=== PATIENT | male | born 1955 | race Caucasian/White ===

== ENCOUNTER → 2017-04-15 | Outpatient (CLI) | payer BC ==
[~2017-04-15] MED LIST: BUPR-127 PO; CIT20 PO; FINA5TAB67 PO; GLUC500T13 PO; METO25TA93 PO; MULT-1 PO; TAMS0.4C70 PO; TEST1.25 TOP
--- NOTE | 2017-04-16 21:45 | RADIOLOGY IMAGING REPORT ---
FACILITY: [facility] [place] PATIENT NAME: NISHANT ZALDIVAR : [id number] MR: [id number] V: [id number] EXAM DATE: ORDERING PHYSICIAN: KOKI STORY TECHNOLOGIST: Sea Duong EXAMINATION:TWO-DIMENSIONAL ECHOCARDIOGRAPH REASON:PVC'S/HTN 2D Measurements (normal values in centimeters) LV endLV endRV endVent.LV PostAorticLeftPercent DiastolicSystolicDiastolicSeptumWallRootAtriumShortening (3.5-5.7)(0.9-2.6)(0.6-1.1)(0.6-1.1)(2.0-3.7)(1.9-4.0)(25-35%) [id number]% STROKE VOLUME: 54ml ESTIMATED EJECTION FRACTION:53% PARASTERNAL LONG AXIS: Overall left ventricular systolic function appears to be normal. Right ventricle appears to be the upper range of normal in size. No left ventricular thickening is noted. Patient has an occasional premature ventricular contraction. The aortic valve & mitral valve both appear to open normally. The left atrium appears to be moderately enlarged. Color examination of the valves reveals some aortic insufficiency as well as some mitral insufficiency present. PARASTERNAL SHORT AXIS: Overall left ventricular systolic function appears to be the lower range of normal. No specific wall motion abnormalities are noted. Aortic valve is trileaflet in configuration & appears to open normally. The pulmonic valve also appears to open normally. There is a mild amount of pulmonic insufficiency. There is some aortic insufficiency & some tricuspid insufficiency. APICAL FOUR AND TWO CHAMBER: Normal left ventricular ejection fraction at the lower range of normal. Left atrium is enlarged. Left atrial volume measures 36ml/m2 which is moderately enlarged. Aortic valve area & mitral valve area both measure within normal ranges at 3.0 & 4.7cm2 respectively. There is a trace to mild amount of tricuspid insufficiency with estimated right ventricular systolic pressures of 18mm Hg. SUBCOSTAL VIEW: No pericardial effusion was noted. No atrioseptal or ventriculoseptal defects were appreciated. Doppler examination of the mitral valve in diastole reveals the A wave > E wave. Aortic insufficiency pressure half time is measured at 685msec going down to 397msec. IVC is normal in size. OVERALL IMPRESSION: 1. Left ventricular ejection fraction of 53%. No wall motion abnormalities were noted. There is some mild hypokinesis. 2. Borderline right ventricular enlargement. Right atrium appears to be normal in size. There is a moderate amount of left atrial enlargement. The left ventricle is normal in size. 3. No hypertrophy was noted. 4. A trileaflet aortic valve with no aortic stenosis but a mild to moderate amount of aortic insufficiency. 5. Mild amount of mitral insufficiency with no mitral stenosis. 6. A trace to mild amount of tricuspid insufficiency with estimated right ventricular systolic pressures within normal ranges at 18mm Hg. 7. A mild amount of pulmonic insufficiency. 8. A Grade 1/4 decrease in diastolic function. Dictated by: Feliberto Rogers M.D. on 04/15/2017 at 16:22 Transcribed by: ALEXANDER on 04/16/2017 at 11:00 Approved by: Feliberto Rogers M.D. on 04/16/2017 at 21:44 [facility]
== END ==
LOC: US 02:20
PROVIDERS: ATTEND Internal Medicine Cardiovascular Disease
DX: R29.898 Other symptoms and signs involving the musculoskeletal system (principal); I51.7 Cardiomegaly; I35.1 Nonrheumatic aortic (valve) insufficiency; I37.1 Nonrheumatic pulmonary valve insufficiency; I34.0 Nonrheumatic mitral (valve) insufficiency; I50.30 Unspecified diastolic (congestive) heart failure
CPT/HCPCS: 93306

== ENCOUNTER → 2017-04-21 | Outpatient (REF) | payer BC | LOC: ZZSENDIN 17:07 | PROVIDERS: ATTEND Family Medicine | DX: Z01.812 Encounter for preprocedural laboratory examination (principal) | CPT/HCPCS: 81001 ==

== ENCOUNTER 2017-05-11 02:43 | Inpatient (IN) | payer BC ==
[2017-05-10 15:55] LABS: INR 1.05
[~2017-05-11] VITALS: Ht 175.3 cm; Wt 83.9 kg
[2017-05-11] VITALS (15 sets, daily range): BP systolic 120–163; BP diastolic 80–114
[~2017-05-11 02:43] MED LIST changes: +AMA100 PO; +AMLO-96 PO; +ASPI81TA94 PO; +CARB-94 PO; +MIRA25TA PO; +ROPI3TAB16 PO; +SOLI10TA8 PO
[2017-05-11] MEDS ORDERED: TRANEXAMIC AC 1000 MG/10ML SDV 1,000 MG in DEXTROSE 5% 50 ML BAG 50 ML IV ONE (08:55)
[2017-05-11] MEDS ORDERED: cloNIDine EPIDUR INJ 100MCG/ML 40 MCG, ROPIVACAINE 0.5% 20 ML VIAL 25 ML, EPINEPHrine H... INJ ONE (08:55)
[2017-05-11] MEDS ORDERED: ceFAZolin(*) 2GM/D5W 50ML 50 ML IVPB ONE (08:55)
[2017-05-11] MEDS ORDERED: MIDAZOLAM 2 MG/2 ML VIAL IVP PRN (08:55)
[2017-05-11] MEDS ORDERED: LIDOCAINE/SOD BICARB 8.4% SYR ID ONE (08:55)
[2017-05-11] MEDS ORDERED: NORMOSOL R SOLN(*) 1000 ML BAG 1,000 ML IV PRN ×2 (08:55→12:20)
[2017-05-11] MEDS ORDERED: FAMOTIDINE 20 MG TAB PO ONE (08:55)
[2017-05-11] MEDS ORDERED: DEXAMETHASONE SOD 4 MG/ML VIAL ONE (09:24)
[2017-05-11] MEDS ORDERED: PROPOFOL EMUL(*) 10MG/ML 20 ML 20 ML ONE (09:24)
[2017-05-11] MEDS ORDERED: ONDANSETRON 4 MG/2 ML VIAL ONE (09:24)
[2017-05-11] MEDS ORDERED: LIDOCAINE MPF 1% 5 ML VIAL ONE (09:24)
[2017-05-11] MEDS ORDERED: MORPHINE PF 5 MG/10 ML AMP ONE (09:25)
[2017-05-11] MEDS ORDERED: fentaNYL CITR 100 MCG/2 ML AMP ONE ×2 (09:25→10:34)
[2017-05-11] MEDS ORDERED: KETAMINE HCL 200 MG/20 ML MDV ONE (09:25)
[2017-05-11] MEDS ORDERED: NS 0.9% IRRIGATION 1000ML PLCT IR ONE (10:37)
[2017-05-11] MEDS ORDERED: LACTATED RINGER 3000 ML BAG IR ONE (10:37)
--- NOTE | 2017-05-11 12:17 | RADIOLOGY IMAGING REPORT ---
FACILITY: [facility] PATIENT NAME: Paulo Edwards : 1955 MR: [id number] V: [id number] EXAM DATE: ORDERING PHYSICIAN: GEORGIE BUSTILLO TECHNOLOGIST: Location: [facility] Patient: Paulo Edwards : 1955 Visit/Account:[id number] Date of Sevice: 05/11/2017 Right knee Indication: Postop Comparison: None available Findings: 2 views right knee were obtained. There is anatomic alignment status post right total knee arthroplasty. Expected soft tissue findings . Components are well seated. IMPRESSION: 1. Expected appearance status post right total knee arthroplasty Report Dictated By: Alvarez Bo MD at 05/11/2017 12:11 PM Report E-Signed By: Alvarez Bo MD at 05/11/2017 12:12 PM WSN:[id number]
[2017-05-11] MEDS ORDERED: MAGNESIUM HYDROXIDE* 30ML UDCP PO PRN (12:20)
[2017-05-11] MEDS ORDERED: PROMETHAZINE 25 MG/ML 1 ML AMP IVP PRN (12:20)
[2017-05-11] MEDS ORDERED: ONDANSETRON 4 MG/2 ML VIAL IVP PRN (12:20)
[2017-05-11] MEDS ORDERED: NALOXONE HCL 0.4 MG/ML VIAL IVP PRN (12:20)
[2017-05-11] MEDS ORDERED: BISACODYL 10 MG SUPP PR PRN (12:20)
[2017-05-11] MEDS ORDERED: FLUSH 10 ML SYR IVP PRN (12:20)
[2017-05-11] MEDS ORDERED: MORPHINE SULFATE 30 MG PCA IV PRN (12:20)
--- NOTE | 2017-05-11 14:56 | Hospitalist Consultation ---
History of Present Illness Requesting Physician Dr. Mercedes Reason for Consult Medication Management Chief Complaint s/p right knee replacement History of Present Illness Patient is s/p right knee replacement. He has no history of DVT or PE. History Problems: (1) Parkinson disease Status: Chronic (2) Depression Status: Chronic (3) BPH (benign prostatic hyperplasia) Status: Chronic (4) S/P ablation of atrial fibrillation Status: Chronic Home Meds Reported Medications Amantadine Hcl (AMANTADINE) 100 Mg Capsule, 100 MG PO TID, CAPSULE 05/06/17 Aspirin (ASPIRIN) 81 Mg Tab.chew, 81 MG PO QDAY, TAB.CHEW 05/06/17 Solifenacin Succinate (VESICARE) 10 Mg Tablet, 10 MG PO DAILY 05/06/17 Carbidopa/Levodopa (CARBIDOPA-LEVODOPA 25-100 TAB) 1 Each Tablet, 1 EACH PO TID 05/06/17 Ropinirole Hcl (ROPINIROLE HCL) 3 Mg Tablet, 3 MG PO TID 05/06/17 Finasteride (FINASTERIDE) 5 Mg Tablet, 5 MG PO QDAY 05/02/15 Tamsulosin Hcl (TAMSULOSIN HCL) 0.4 Mg Cap.er.24h, 0.4 MG PO DAILY, CAP 05/02/15 Citalopram Hydrobromide (Celexa) 20 Mg Tab, 20 MG PO DAILY, 0 Refills 05/08/09 Discontinued Reported Medications Amlodipine Besylate (AMLODIPINE BESYLATE) 5 Mg Tablet, 1 TAB PO QDAY, TAB 05/06/17 Mirabegron (MYRBETRIQ) 25 Mg Tab.er.24h, 25 MG PO DAILY 05/06/17 Tamsulosin Hcl (TAMSULOSIN HCL) 0.4 Mg Cap.er.24h, 0.4 MG PO, CAP 05/06/17 TESTOSTERONE 1.62% Topical Gel (ANDROGEL 1.62% Topical Gel) 1.25 Gm Gel.packet, TOP 05/02/15 Bupropion Hcl (WELLBUTRIN) 75 Mg Tablet, PO QDAY, TAB 05/02/15 Discontinued Scripts Metoprolol Tartrate (METOPROLOL TARTRATE) 25 Mg Tablet, 1 TAB PO BID for pvc for 30 Days, TAB Prov:MCKENZIE PRINCE MD 05/02/15 Allergies: Uncoded Allergies: HAYFEVER (Allergy, Intermediate, UNKNOWN, 07/29/11) Patient History: FH: CHF (congestive heart failure) MOTHER, FH: [place] (myocardial infarction) FATHER, Hx Smoking: No Smoking Status: Former Smoker Exposure to Second Hand Smoke?: Yes When Quit Tobacco?: ONE MONTH AGO Caffeine Intake: Coffee Caffeine/Cups Per Day: 2 Hx Alcohol Use: Yes (social) Alcohol Used: Beer Hx Substance Use Disorder: No Social Drug Use: Never History of IV Drug Use: No Review of Systems All Systems Reviewed/Normal: Yes, Except as Noted Exam Vital Signs Vital Signs Date Time Temp Pulse Resp B/P (MAP) Pulse Ox O2 Delivery O2 Flow Rate FiO2 05/11/17 13:27 98.3 92 16 156/89 (111) 99 Nasal Cannula 2.0 General Appearance: Alert, Awake, No Acute Distress, Afebrile Cardiovascular: Regular Rate and Rhythm Respiratory: No Respiratory Distress, Clear to Auscultation Psych: Alert & Oriented X3, Appropriate Mood & Affect Assessment and Plan Problems: (1) Status post right knee replacement Status: Acute Assessment & Plan: Patient will be started on Aspirin 325 mg for 30 days for DVT prophylaxis. He has no history of DVT or PE. (2) Parkinson disease Status: Chronic Assessment & Plan: He is on chronic treatment with Ropinirole, Amantadine, and Carbidopa/ Levodopa. (3) Depression Status: Chronic Assessment & Plan: He is on chronic treatment with citalopram. (4) BPH (benign prostatic hyperplasia) Status: Chronic Assessment & Plan: He is on chronic treatment with Vesicare and Tamsulosin. (5) S/P ablation of atrial fibrillation Status: Chronic Assessment & Plan: Patient reports his cardiac rhythm has been well controlled since the ablation in 2016. He did have some Ventricular bigeminy during surgery. He denies CP or SOB. Continue to monitor. Telemetry ordered. (6) Elevated serum creatinine Status: Acute Assessment & Plan: Creatinine prior to surgery was 1.2. Will check BMP tomorrow. Venous Thromboembolism Antithrombotics Is Pt On Any Antithrombotics?: No Prophylaxis Tx Contraindicated Pharmacological Contraindicati: Surgical Contraindication GERALD DUNN RUFFLING MACHINE OPERATOR May 11, 2017 14:56
[2017-05-11] MEDS: ceFAZolin(*) 1 GM VIAL 1 GM in NS(*) 0.9% 100 ML ADDVANT BAG 100 ML IVPB SCH (17:00)
[2017-05-11] MEDS ORDERED: AMANTADINE HCL 100 MG CAP PO ONE (17:30)
[2017-05-11] MEDS ORDERED: CARBIDOPA/LEVODOPA 25/100 TAB PO ONE (17:30)
[2017-05-11] MEDS: ACETAMINOPHEN 325 MG TAB PO SCH (19:11)
[2017-05-11] MEDS ORDERED: AMANTADINE HCL 100 MG CAP PO SCH (21:00)
[2017-05-11] MEDS ORDERED: CARBIDOPA/LEVODOPA 25/100 TAB PO SCH (21:00)
[2017-05-11] MEDS: CARBIDOPA/LEVODOPA 25/100 TAB PO SCH (22:54)
[2017-05-11] MEDS: AMANTADINE HCL 100 MG CAP PO SCH (22:55)
[2017-05-11] MEDS: oxyCODONE HCL 5 MG CAP PO PRN (23:02)
[2017-05-12] MEDS: ACETAMINOPHEN 325 MG TAB PO SCH ×4 (00:43→17:57)
[2017-05-12] MEDS: ceFAZolin(*) 1 GM VIAL 1 GM in NS(*) 0.9% 100 ML ADDVANT BAG 100 ML IVPB SCH ×2 (01:39→09:22)
[2017-05-12 03:53] VITALS: BP 117/62
[2017-05-12] MEDS: MORPHINE 2 MG/ML SYR IVP PRN ×3 (03:58→20:55)
--- NOTE | 2017-05-12 04:06 | OPERATIVE REPORT 1 ---
EVENT DATE: May 11, 2017 SURGEON: Magdi Mercedes MD ANESTHESIOLOGIST: Manny Stephenson MD ANESTHESIA: Spinal followed by general. We utilized 1 gram of IV tranexamic acid 10 minutes prior to start and at the end of the implantation. We used 50 mL of our standard ropivacaine/Toradol cocktail. SAWYER CORK SLABS: CARINA Gaviria, EVENT MANAGEMENT CONSULTANT PREOPERATIVE DIAGNOSIS Right knee degenerative joint disease, mild valgus alignment. POSTOPERATIVE DIAGNOSIS Right knee degenerative joint disease, mild valgus alignment. PROCEDURE PERFORMED Right total knee arthroplasty. IMPLANTS MicroPort medial pivot shift CS system with a 6 tibia, 5 femur, 10 mm CS insert , 8 x 35 symmetric patella. The femur was cut 6 degrees valgus, 10 mm. We utilized 2 packages of DonJoy cobalt blue cement, and a ZipLine wound closure system. SPECIMENS None. COMPLICATIONS None. BLOOD LOSS Less than 200 mL. OPERATION Patient was brought to the OR, and after receiving appropriate preoperative antibiotics, Dr. Stephenson performed spinal followed by general anesthesia. Dyson catheter was placed by the nursing staff. Right lower extremity was prepped and draped in the usual sterile fashion. Midline incision was made, followed by medial parapatellar arthrotomy. I dissected medially along the medial tibial plateau subperiosteally to the level of semimembranosus insertion. Fat pad was excised, patella released, and the patella everted, knee brought up into flexion. We noted eburnation in lateral compartment, grade 2 and 3 changes in medial compartment, grade 3 and 4 changes in the patellofemoral compartment. Notch showed osteophytes which were removed by rongeur. ACL and PCL released subperiosteally by Bovie. Femur was broached by step cut drill followed by placement of our distal femoral alignment guide with an intramedullary yusuf, setting the cutting block up at 6 degrees valgus, 10 mm. With care taken to protect the soft tissues, we made our distal cut. 3 degree external rotation guide and sizer was placed, referencing out the anterior flange, epicondyles, posterior condyles. Femur was sized to a #5, and peg holes were drilled. The 4-in-1 cutting guide was then placed. Z retractor was placed to protect the soft tissues, and four cuts were made. Tibia was brought anteriorly on the femur with appropriate retractors, and we broached the canal with a step cut drill, placed our intramedullary guide, and referencing 4 mm off our eburnated lateral tibial plateau, referencing for rotation, we pinned the block into place and made our cut, with care taken to protect the soft tissue. Tibia was sized to a #6. ACL and PCL and the medial and lateral meniscus remnants removed by Bovie. Curved osteotome was utilized to remove posterior osteophytes followed by a Jama elevator to elevate the capsule. Referencing from the previous rotation, we pinned tibial base plate into place, placed a 10 mm trial insert, then our femur. We achieved full extension. Flexion was limited only by body habitus. At 90 degrees, we had satisfactory end point and anterior drawer. It should be noted that during the exposure, we had fully released the IT band. Knee was brought up in full extension. Patella measured 24 mm. We placed our cutting guide for an 8 mm cut , and this was made. Peg hole trial was positioned inferiorly medially, and peg holes were drilled, and this accepted our trial. Knee was flexed. Peg holes drilled for femur, and pegs placed, followed by cutting for trochlear chip , which was then placed. Again we had full extension, flexion limited only by body habitus, about 135 degrees. Stability through varus, valgus stress, patella tracked well, and we had a solid end point and anterior drawer. Patella , femur, tibial insert were removed. Appropriate retractors were placed. Tibial tower was placed for keel. This was cut, reamed and punched. This instrumentation was removed, bone plug then placed in the distal femur. Knee was brought out in full extension. We copiously irrigated by pulse lavage while we mixed 2 package of cobalt blue cement. We injected 10 mL of our cocktail in the posterior capsule, then placed the knee in appropriate position , irrigated once again, dried with laps, and then starting at the tibia, this was cemented in place followed by our 10 mm CS insert, then our femur. Excess cement was removed. Knee brought up to full extension with axial compression while we cemented the patella. At 13-1/2 minutes, the cement had hardened. Again we had the aforementioned range of motion and stability. We copiously irrigated once again, then injected the remaining 40 mL of our cocktail into the distal quad mechanism. We then closed the arthrotomy with #2 Vicryl in hybmed-ic-hvife suture fashion at 30 degrees. Subcutaneous tissues were closed with 3-0 Vicryl. Knee was then placed at 45 degrees. Wound was clean. We placed our ZipLine wound closure system followed by a compressive dressing. Patient was extubated and taken to recovery in stable condition. Hospitalist team will be consulted for medical management and anticoagulation, PT and OT for rehab. BETTY
[2017-05-12] MEDS: oxyCODONE HCL 5 MG CAP PO PRN ×3 (05:33→18:04)
[2017-05-12] MEDS: CITALOPRAM HYDROBROM 20 MG TAB PO SCH (09:26)
[2017-05-12] MEDS: TAMSULOSIN HCL 0.4 MG CAP PO SCH (09:26)
[2017-05-12] MEDS: ASPIRIN 325 MG TAB PO SCH (09:26)
[2017-05-12] MEDS: AMANTADINE HCL 100 MG CAP PO SCH ×3 (09:26→21:01)
[2017-05-12] MEDS: FINASTERIDE 5 MG TAB PO SCH (09:26)
[2017-05-12] MEDS: CARBIDOPA/LEVODOPA 25/100 TAB PO SCH ×3 (09:27→21:01)
[2017-05-12] MEDS: SOLIFENACIN SUCCINATE 5 MG TAB PO SCH (09:27)
--- NOTE | 2017-05-12 09:27 | Hospitalist Progress Note ---
Subjective Progress Notes Subjective He has no complaints today. Patient Complains of: Cardiovascular: No: Chest Pain Respiratory: No: Shortness of Breath Physical Exam Vital Signs Date Time Temp Pulse Resp B/P (MAP) Pulse Ox O2 Delivery O2 Flow Rate FiO2 05/12/17 03:53 98.4 74 16 117/62 (80) 92 Room Air 05/11/17 18:00 2.0 Intake and Output 05/13/17 07:00 Intake Total 120 ml Balance 120 ml Intake Oral 120 ml General Appearance: Alert, Awake, No Acute Distress, Afebrile Cardiovascular: Regular Rate and Rhythm Respiratory: No Respiratory Distress, Clear to Auscultation Psych: Alert & Oriented X3, Appropriate Mood & Affect Result Diagram: 05/12/17 0529 05/12/17 0523 Assessment and Plan Problems: (1) Status post right knee replacement Status: Acute Assessment & Plan: Patient will be started on Aspirin 325 mg for 30 days for DVT prophylaxis. He has no history of DVT or PE. (2) Parkinson disease Status: Chronic Assessment & Plan: He is on chronic treatment with Ropinirole, Amantadine, and Carbidopa/ Levodopa. (3) Depression Status: Chronic Assessment & Plan: He is on chronic treatment with citalopram. (4) BPH (benign prostatic hyperplasia) Status: Chronic Assessment & Plan: He is on chronic treatment with Vesicare and Tamsulosin. (5) S/P ablation of atrial fibrillation Status: Chronic Assessment & Plan: Patient reports his cardiac rhythm has been well controlled since the ablation in 2015. He denies CP or SOB. (6) Elevated serum creatinine Status: Acute Assessment & Plan: Creatinine prior to surgery was 1.2. Creatinine today 0.80. Exam Sepsis Risk: No Definite Risk GERALD DUNN MANUFACTURING ENGINEER CHIEF May 12, 2017 09:27
[2017-05-12 10:09] VITALS: BP 126/79
[2017-05-12 13:52] VITALS: Ht 175.3 cm; Wt 83.9 kg
[2017-05-12 20:07] VITALS: BP 112/72
[2017-05-13] VITALS (8 sets, daily range): BP systolic 86–142; BP diastolic 53–89
[2017-05-13] MEDS: ACETAMINOPHEN 325 MG TAB PO SCH ×5 (00:10→23:43)
[2017-05-13] MEDS: oxyCODONE HCL 5 MG CAP PO PRN ×3 (06:16→20:28)
--- NOTE | 2017-05-13 08:16 | Hospitalist Progress Note ---
Subjective Progress Notes Subjective Patient has no complaints this morning. Patient Complains of: Cardiovascular: No: Chest Pain Respiratory: No: Shortness of Breath Physical Exam Vital Signs Date Time Temp Pulse Resp B/P (MAP) Pulse Ox O2 Delivery O2 Flow Rate FiO2 05/13/17 07:28 99.2 76 17 139/83 (101) 93 Nasal Cannula 2.0 General Appearance: Alert, Awake, No Acute Distress, Afebrile Cardiovascular: Regular Rate and Rhythm Respiratory: No Respiratory Distress, Clear to Auscultation Psych: Alert & Oriented X3, Appropriate Mood & Affect Result Diagram: 05/13/17 0515 05/12/17 0523 Assessment and Plan Problems: (1) Status post right knee replacement Status: Acute Assessment & Plan: Patient will be started on Aspirin 325 mg for 30 days for DVT prophylaxis. He has no history of DVT or PE. (2) Parkinson disease Status: Chronic Assessment & Plan: He is on chronic treatment with Ropinirole, Amantadine, and Carbidopa/ Levodopa. (3) Depression Status: Chronic Assessment & Plan: He is on chronic treatment with citalopram. (4) BPH (benign prostatic hyperplasia) Status: Chronic Assessment & Plan: He is on chronic treatment with Vesicare and Tamsulosin. (5) S/P ablation of atrial fibrillation Status: Chronic Assessment & Plan: Patient reports his cardiac rhythm has been well controlled since the ablation in 2015. He denies CP or SOB. (6) Elevated serum creatinine Status: Acute Assessment & Plan: Creatinine prior to surgery was 1.2. Creatinine was 0.80 . Exam Sepsis Risk: No Definite Risk GERALD DUNNP May 13, 2017 08:16
[2017-05-13] MEDS: ASPIRIN 325 MG TAB PO SCH (09:01)
[2017-05-13] MEDS: SOLIFENACIN SUCCINATE 5 MG TAB PO SCH (09:01)
[2017-05-13] MEDS: FINASTERIDE 5 MG TAB PO SCH (09:02)
[2017-05-13] MEDS: CARBIDOPA/LEVODOPA 25/100 TAB PO SCH ×3 (09:02→20:29)
[2017-05-13] MEDS: CITALOPRAM HYDROBROM 20 MG TAB PO SCH (09:02)
[2017-05-13] MEDS: TAMSULOSIN HCL 0.4 MG CAP PO SCH (09:02)
[2017-05-13] MEDS: AMANTADINE HCL 100 MG CAP PO SCH ×3 (09:02→20:29)
[2017-05-13] MEDS ORDERED: NS(*) 0.9% 500 ML BAG 500 ML ONE (15:51)
[2017-05-14 05:04] VITALS: BP 119/87
[2017-05-14] MEDS: oxyCODONE HCL 5 MG CAP PO PRN (05:18)
[2017-05-14] MEDS: ACETAMINOPHEN 325 MG TAB PO SCH (05:18)
[2017-05-14 07:08] VITALS: BP 122/70
[2017-05-14] MEDS: AMANTADINE HCL 100 MG CAP PO SCH (08:16)
[2017-05-14] MEDS: TAMSULOSIN HCL 0.4 MG CAP PO SCH (08:16)
[2017-05-14] MEDS: CARBIDOPA/LEVODOPA 25/100 TAB PO SCH (08:16)
[2017-05-14] MEDS: ASPIRIN 325 MG TAB PO SCH (08:16)
[2017-05-14] MEDS: CITALOPRAM HYDROBROM 20 MG TAB PO SCH (08:16)
[2017-05-14] MEDS: SOLIFENACIN SUCCINATE 5 MG TAB PO SCH (08:16)
[2017-05-14] MEDS: FINASTERIDE 5 MG TAB PO SCH (08:16)
[2017-05-14] MEDS ORDERED: POLYETHYLENE GLYCOL 17 GM PKT PO ONE (09:11)
--- NOTE | 2017-05-14 09:17 | Hospitalist Progress Note ---
Subjective Progress Notes Subjective He has no complaints this morning. He is ready to go to [facility] for further rehab. Patient Complains of: Cardiovascular: No: Chest Pain Respiratory: No: Shortness of Breath Physical Exam Vital Signs Date Time Temp Pulse Resp B/P (MAP) Pulse Ox O2 Delivery O2 Flow Rate FiO2 05/14/17 08:16 94 Nasal Cannula 05/14/17 07:08 98.3 70 20 122/70 (87) General Appearance: Alert, Awake, No Acute Distress, Afebrile Cardiovascular: Regular Rate and Rhythm Respiratory: No Respiratory Distress, Clear to Auscultation Psych: Alert & Oriented X3, Appropriate Mood & Affect Result Diagram: 05/14/17 0530 05/12/17 0523 Assessment and Plan Problems: (1) Status post right knee replacement Status: Acute Assessment & Plan: Patient will be started on Aspirin 325 mg for 30 days for DVT prophylaxis. He has no history of DVT or PE. (2) Parkinson disease Status: Chronic Assessment & Plan: He is on chronic treatment with Ropinirole, Amantadine, and Carbidopa/ Levodopa. (3) Depression Status: Chronic Assessment & Plan: He is on chronic treatment with citalopram. (4) BPH (benign prostatic hyperplasia) Status: Chronic Assessment & Plan: He is on chronic treatment with Vesicare and Tamsulosin. (5) S/P ablation of atrial fibrillation Status: Chronic Assessment & Plan: Patient reports his cardiac rhythm has been well controlled since the ablation in 2015. He denies CP or SOB. (6) Elevated serum creatinine Status: Acute Assessment & Plan: Creatinine prior to surgery was 1.2. Creatinine was 0.80 . Exam Sepsis Risk: No Definite Risk GERALD DUNN RETORT LOAD EXPEDITER May 14, 2017 09:17
== END 2017-05-14 10:15 | DRG 470 ==
LOC: OR 02:43 → MED 13:20
PROVIDERS: ADMIT Orthopaedic Surgery; ATTEND Orthopaedic Surgery
PROC: 0SRC0J9 Replacement of Right Knee Joint with Synthetic Substitute, Cemented, Open Approach (ICD-10-PCS; principal; 2017-05-11 09:45)
DX: M17.0 Bilateral primary osteoarthritis of knee (principal); M21.061 Valgus deformity, not elsewhere classified, right knee; F32.9 Major depressive disorder, single episode, unspecified; G20 Parkinson's disease; I48.2 Chronic atrial fibrillation; N40.0 Benign prostatic hyperplasia without lower urinary tract symptoms; Z79.01 Long term (current) use of anticoagulants
CPT/HCPCS: 36415; 82310; 82374; 82435; 82565; 82947; 84132; 84295; 84520; 85014; 85018; 85610; 86850; 86900; 86901; 97162; C1713; C1776; G9017; J0171; J0690; J0735; J1100; J1885; J2001; J2270; J2405; J2704; J2795; J3010; J3490; J7040; J7050; J7060

== ENCOUNTER 2017-05-14 10:15 | Inpatient (IN) | payer BC ==
[2017-05-12 13:52] VITALS: Ht 175.3 cm; Wt 83.9 kg
[~2017-05-14] VITALS: Ht 175.3 cm; Wt 83.9 kg
[2017-05-14] MEDS ORDERED: TAMSULOSIN HCL 0.4 MG CAP PO SCH (10:48)
[2017-05-14] MEDS ORDERED: BISACODYL 10 MG SUPP PR PRN (10:48)
[2017-05-14] MEDS: oxyCODONE HCL 5 MG CAP PO PRN ×2 (11:14→19:55)
--- NOTE | 2017-05-14 11:19 | Consultant Pharmacy Review ---
Composing Machine Operator Review Medication Review Do All Mecications have a Diag: Yes Disease-Drug Interactions History of Falls/Fractures: SSRIs, Opioids Drugs to Use With Caution Medications Which Cause SIADH: SSRIs Other General Cautions Lexicomp Interaction Analysis A = No known interaction C = Monitor therapy X = Avoid combination B = No action needed D = Consider therapy modification Drugs in this analysis: Acetaminophen; Amantadine; Aspirin; Bisacodyl; CeleXA; Flomax; Milk of Magnesia [OTC]; MiraLax [OTC]; OxyCODONE; Proscar; Requip; Sinemet; VESIcare * Drug-Drug Interactions D Amantadine (QTc-Prolonging Agents (Indeterminate Risk and Risk Modifying)) CeleXA (QTc-Prolonging Agents (Highest Risk)) D Bisacodyl Milk of Magnesia [OTC] (Antacids) D CeleXA (QTc-Prolonging Agents (Highest Risk)) VESIcare (QTc-Prolonging Agents (Indeterminate Risk and Risk Modifying)) C Amantadine VESIcare (Anticholinergic Agents) C Aspirin CeleXA (Selective Serotonin Reuptake Inhibitors) C CeleXA (Selective Serotonin Reuptake Inhibitors) OxyCODONE (OUTSOLE CEMENTER MACHINE Depressants ) C CeleXA (Serotonin Modulators) OxyCODONE (Opioid Analgesics) C Flomax (Blood Pressure Lowering Agents) Requip (Hypotension-Associated Agents) C Flomax (Blood Pressure Lowering Agents) Sinemet (Levodopa) C OxyCODONE (OUTSOLE CEMENTER MACHINE Depressants) Requip (ROPINIRole) C OxyCODONE (Opioid Analgesics) VESIcare (Anticholinergic Agents) C Requip (Blood Pressure Lowering Agents) Sinemet (Levodopa) B Acetaminophen OxyCODONE (Opioid Analgesics) B Aspirin (Salicylates) Milk of Magnesia [OTC] (Antacids) Depends on Duration Pneumococcal Vaccine HX Pneumo Vac ([id number]): No HX Pneumo Vac (Pneumovax): No Comments Regarding the Review Patient is on Vesicare, Celexa and Amantadine which can all cause QTc prolongation and I was not able to find that his QTc interval has been checked recently so may want to consider checking. Please re-evaluate the oxycodone use in 2 weeks. ESTRELLITA RAINES May 14, 2017 11:19
[2017-05-14] MEDS: ACETAMINOPHEN 325 MG TAB PO SCH ×3 (11:48→23:50)
[2017-05-14 13:00] VITALS: BP 89/44
[2017-05-14] MEDS: CARBIDOPA/LEVODOPA 25/100 TAB PO SCH ×2 (14:08→20:37)
[2017-05-14] MEDS: AMANTADINE HCL 100 MG CAP PO SCH ×2 (14:08→20:37)
--- NOTE | 2017-05-14 16:00 | OT ECF NOTE ---
Type of Note: Initial Note Primary Medical Diagnosis: Generalized Weakness s/p R TKA Occupational Therapy Evaluation Date: 05/14/17 SUBJECTIVE: Prior Hospitalization: [facility] 05/11/17 thru 05/14/17. DOS: 05/11/[address] Mercedes Prior Level of Function: (I) with all ADLs/IADLs Prior Living Status: Spouse Living with family Assist by family Community Services: Independent Support adequate No known needs Home Accessibility: Stairs with rails Tub/shower combination with no chair Equipment Owned: Possibly a RW Medical Complications/Past Medical History: Parkinson's, Depression, BPH, s/ p ablation of AFib Psychosocial Support: Supportive family Pain Scale (0-10): 4/10 during ambulation. Ice applied at end of evaluation OBJECTIVE: Strength: MMT: Right Left Shoulder Flexion WFL WFL Elbow Flexion WFL WFL Wrist Extension WFL WFL [employer] Fire Control Man WFL WFL (5= normal, 4= good, 3= fair, 2= poor, 1= trace) ROM: Both upper extremities, WFL Functional Transfer: Assistive Device: Front wheeled walker, Gait belt Transfer Ability: Minimum assistance sit<>stand with retropulsion. CGA ambulation in room with RW, Min A due to 1 LOB. ADL: Upper body dressing: Assistive device: Upper body dressing ability: N/T Lower body dressing: Assistive device: Lower body dressing ability: N/T Toileting: Assistive device: Toileting ability: N/T Grooming/hygiene: Assistive device: Grooming ability: N/T Bathing: Assistive device: Bathing ability: N/T Standardized Assessment: Lore Index of Activities of Daily Livin/20 at initial evaluation (). ASSESSMENT: Paulo [facility] to [facility] requiring increased for mobility and self- cares s/p R TKA with Parkinson's disease. Prior to admission, pt was (I) with ADLs/IADLs. He will benefit from skilled OT services to increase independence with ADLs/IADLs prior to discharge home. Problem List/Current Limitations: Pain Decreased activity tolerance Decreased strength Decreased ROM Poor safety awareness Short Term Goals: 1) Pt will be Mod (I) UB/LB dressing. 2) Pt will be Mod (I) toileting. 3) Pt will be (I) grooming/hygiene. 4) Pt will be Mod (I) shower task. 5) Pt Lore Index of ADLs score will increase by 2 points. Chcf Goals: Return home with assist from family Patient Goals: Return home with family with out without RW Rehabilitation Prognosis: Good Barriers to Discharge: Pain, Parkinson's PLAN: The patient will benefit from skilled occupational therapy services 5 times per week for 2 weeks including: Ther ex ADL training Safety training Ther act IADL training Transfer training Adaptive equip training Bed mobility Energy conservation Thank you for this referral. If you have any questions, concerns, or comments about this report or plan, please contact me at . Franchesca Aragon MS, OTR/L Occupational Therapist BETTY
[2017-05-14] MEDS ORDERED: TAMSULOSIN HCL 0.4 MG CAP PO ONE (16:45)
[2017-05-14 16:50] VITALS: BP 117/72
[2017-05-15] MEDS: ACETAMINOPHEN 325 MG TAB PO SCH ×4 (06:00→23:49)
[2017-05-15] MEDS: oxyCODONE HCL 5 MG CAP PO PRN ×3 (06:33→20:55)
[2017-05-15 07:30] VITALS: BP 155/82
[2017-05-15] MEDS: CITALOPRAM HYDROBROM 20 MG TAB PO SCH (09:05)
[2017-05-15] MEDS: TAMSULOSIN HCL 0.4 MG CAP PO SCH (09:05)
[2017-05-15] MEDS: FINASTERIDE 5 MG TAB PO SCH (09:05)
[2017-05-15] MEDS: CARBIDOPA/LEVODOPA 25/100 TAB PO SCH ×3 (09:05→20:54)
[2017-05-15] MEDS: AMANTADINE HCL 100 MG CAP PO SCH ×3 (09:06→20:54)
[2017-05-15] MEDS: SOLIFENACIN SUCCINATE 5 MG TAB PO SCH (09:06)
[2017-05-15] MEDS: ASPIRIN 325 MG TAB PO SCH (09:06)
--- NOTE | 2017-05-15 10:31 | PT ECF NOTE ---
Type of Note: Initial Note Primary Medical Diagnosis: S/P R TKA; Parkinson's Disease Physical Therapy Evaluation Date: 05/14/2017 SUBJECTIVE: Prior Hospitalization: [facility] acute for R TKA Prior Level of Function: Pt reports independence with functional mobility including ambulation without an assistive device and ascending/descending a flight of stairs to his basement office. Prior Living Status: Spouse, Living with family, Assist by family Community Services: Independent, Support adequate, No known needs Home Accessibility: Stairs with rails, Tub/shower combination Equipment Owned: Front wheeled walker Medical Complications/Past Medical History: Parkinson's Disease Psychosocial Support: Supportive OBJECTIVE: Strength: Right Lower Extremity:decreased secondary to recent TKA Left Lower Extremity: WFL ROM: (please note any abnormalities) Decreased R knee ROM due to recent TKA. Extension -10 deg. Other Neuro findings: Movement patterns consistent with Parkinson's Disease Bed Mobility: not observed at time of eval. Transfers: Minimum assistance, retropulsion noted Assistive Device: Front wheeled walker Gait: Minimum assistance x20' with RW. Noted toe walking on R due to knee flexion. Assistive device: Front wheeled walker Timed Up and Go (>12 seconds indicated increased risk for falls): to be measured next visit. ASSESSMENT: Pt presents with decreased independence with functional mobility compared to baseline and also decreased R knee ROM and strength (recent TKA) further limiting independence with safety with mobility. Recommend skilled PT for functional mobility training, strengthening and ROM, neuromuscular re- education in order to return to prior level of function. Problem List/Current Limitations: Pain, Decreased activity tolerance, Decreased strength, Decreased ROM, Decreased coordination, Decreased balance Short Term Goals: 1. Mod I bed mobility from flat bed. 2. Mod I transfers from a variety of surfaces. 3. Mod I gait with least restrictive device. 4. Ascend/descend flight of stairs to access basement office. 5. Mod I use of CPM (with assistance of ). 6. Improve TUG by 2 seconds. Detention Goals: Return home at prior level of function Patient Goals: Return home safely Rehabilitation Prognosis: Good Barriers for Discharge: none identified PLAN: The patient will benefit from skilled physical therapy services 5 times per week for 2 weeks including: Therapeutic Exercise, Therapeutic Activities, Transfer Training, Gait Training, Stair Training, Manual Therapy, ADL's, Safety Training, Neuromuscular Re-educ., Pt/Caregiver Training, Bed Mobility Thank you for this referral. If you have any questions, concerns, or comments about this report or plan, please contact me at . Eve Wetzel, PT, DPT, GCS MTDD
--- NOTE | 2017-05-15 12:49 | Medical Nutrition Therapy ---
Nutrition Anthropometrics Height (Inches): 69 Height (Calculated Centimeters: [phone] Weight (Pounds): 185 Weight (Calculated Kilograms): 87.997 BMI Calculated: 27.32 Sumeet Nutrition Score: Adequate Sumeet Nutrition Risk Score: 18 Dietary Referral Nutrition Risk Factors: Unplanned Loss >10lbs Nutrition Risk Comment: Physical Findings Physical Appearance: Overweight BMI 25-29 (BMI 27.3) Skin Appearance Skin Appearance: Edema Edema Location Modifier: Right Edema Location: Leg Type of Edema: Degree of Edema: Gastrointestinal Symptoms GI Symtoms: Constipation Tube Present: Bowel Sounds: Recent Bowel Pattern: Constipated Stool Characteristics: Nutritional Diagnosis Nutritional Risk Acuity 4: Good Appetite Past Medical History: parkinson, BPH, depression, a-fib Nutritional Acuity: 4-Low Energy Requirement: 2120 (M- StJ) Protein Requirement: 87 (2gm/kg) Fluid Requirement: 2600 (39ml/kg) Diet Type: Diet as Tolerated [place]/REG Nutrition Intervention: Cont diet as ordered, Encourage intake, HS snack Nutrition Monitoring & Eval Nutrition Goals: Eat 75-100% Meal RD Patient Assessment Time: [address] Assessment Type: RD Screen Patient Nutrition Acuity: 4-Low Follow Up Date: May 19, 2017 Nutritional Comment: 05/15 pt admitted post knee surgery. Pt eating 100% of regular diet. Alb 4.4. BMI is in overwt range. Will cont to monitor and encourage intake. LEONID JAIMES May 15, 2017 12:49
[2017-05-15] MEDS: POLYETHYLENE GLYCOL 17 GM PKT PO PRN (14:55)
[2017-05-15 17:10] VITALS: BP 105/70
[2017-05-16] MEDS: oxyCODONE HCL 5 MG CAP PO PRN ×2 (04:30→16:22)
[2017-05-16] MEDS: ACETAMINOPHEN 325 MG TAB PO SCH ×3 (05:56→17:56)
[2017-05-16 08:38] VITALS: BP 165/103
[2017-05-16] MEDS: CITALOPRAM HYDROBROM 20 MG TAB PO SCH (08:42)
[2017-05-16] MEDS: TAMSULOSIN HCL 0.4 MG CAP PO SCH (08:42)
[2017-05-16] MEDS: AMANTADINE HCL 100 MG CAP PO SCH ×3 (08:43→20:23)
[2017-05-16] MEDS: ASPIRIN 325 MG TAB PO SCH (08:43)
[2017-05-16] MEDS: FINASTERIDE 5 MG TAB PO SCH (08:43)
[2017-05-16] MEDS: SOLIFENACIN SUCCINATE 5 MG TAB PO SCH (08:43)
[2017-05-16] MEDS: CARBIDOPA/LEVODOPA 25/100 TAB PO SCH ×3 (08:43→20:23)
[2017-05-16 11:20] VITALS: BP 114/68
[2017-05-16] MEDS: POLYETHYLENE GLYCOL 17 GM PKT PO PRN (11:22)
[2017-05-16 15:50] VITALS: BP 118/76
[2017-05-17] MEDS: ACETAMINOPHEN 325 MG TAB PO SCH ×5 (06:00→23:19)
[2017-05-17 09:00] VITALS: BP 100/65
[2017-05-17] MEDS: CITALOPRAM HYDROBROM 20 MG TAB PO SCH (09:11)
[2017-05-17] MEDS: CARBIDOPA/LEVODOPA 25/100 TAB PO SCH ×3 (09:11→20:33)
[2017-05-17] MEDS: AMANTADINE HCL 100 MG CAP PO SCH ×3 (09:11→20:33)
[2017-05-17] MEDS: ASPIRIN 325 MG TAB PO SCH (09:11)
[2017-05-17] MEDS: SOLIFENACIN SUCCINATE 5 MG TAB PO SCH (09:11)
[2017-05-17] MEDS: oxyCODONE HCL 5 MG CAP PO PRN ×3 (09:11→22:51)
[2017-05-17] MEDS: TAMSULOSIN HCL 0.4 MG CAP PO SCH (09:11)
[2017-05-17] MEDS: FINASTERIDE 5 MG TAB PO SCH (09:12)
[2017-05-17] MEDS: POLYETHYLENE GLYCOL 17 GM PKT PO PRN (09:58)
[2017-05-17] MEDS: DOCUSATE SODIUM 100 MG CAP PO SCH ×2 (12:14→20:33)
[2017-05-17] MEDS: FAMOTIDINE 20 MG TAB PO SCH ×2 (12:14→20:33)
[2017-05-17] MEDS: CALCIUM CARBONATE 500 MG CHEW PO PRN ×2 (12:14→18:05)
[2017-05-17 15:35] VITALS: BP 116/74
[2017-05-18] MEDS: ACETAMINOPHEN 325 MG TAB PO SCH ×3 (05:20→17:30)
[2017-05-18 08:00] VITALS: BP 143/96
[2017-05-18] MEDS: AMANTADINE HCL 100 MG CAP PO SCH ×3 (08:57→20:44)
[2017-05-18] MEDS: ASPIRIN 325 MG TAB PO SCH (08:57)
[2017-05-18] MEDS: CARBIDOPA/LEVODOPA 25/100 TAB PO SCH ×3 (08:57→20:44)
[2017-05-18] MEDS: TAMSULOSIN HCL 0.4 MG CAP PO SCH (08:57)
[2017-05-18] MEDS: FINASTERIDE 5 MG TAB PO SCH (08:58)
[2017-05-18] MEDS: oxyCODONE HCL 5 MG CAP PO PRN ×3 (08:58→22:49)
[2017-05-18] MEDS: SOLIFENACIN SUCCINATE 5 MG TAB PO SCH (08:58)
[2017-05-18] MEDS: FAMOTIDINE 20 MG TAB PO SCH ×2 (08:58→20:44)
[2017-05-18] MEDS: MAGNESIUM HYDROXIDE* 30ML UDCP PO PRN ×2 (08:58→20:43)
[2017-05-18] MEDS: DOCUSATE SODIUM 100 MG CAP PO SCH ×2 (08:58→20:43)
[2017-05-18] MEDS: CITALOPRAM HYDROBROM 20 MG TAB PO SCH (08:58)
[2017-05-18] MEDS: POLYETHYLENE GLYCOL 17 GM PKT PO PRN (14:27)
[2017-05-18 16:35] VITALS: BP 137/97
[2017-05-19] MEDS: ACETAMINOPHEN 325 MG TAB PO SCH ×4 (05:18→17:30)
[2017-05-19 08:00] VITALS: BP 110/61
--- NOTE | 2017-05-19 08:30 | Medical Nutrition Therapy ---
Nutrition Anthropometrics Height (Inches): 69 Height (Calculated Centimeters: [phone] Weight (Pounds): 185 Weight (Calculated Kilograms): 87.997 BMI Calculated: 27.32 Sumeet Nutrition Score: Probably Inadequate Sumeet Nutrition Risk Score: 17 Dietary Referral Nutrition Risk Factors: Unplanned Loss >10lbs Nutrition Risk Comment: Nutritional Diagnosis Nutritional Risk Acuity 4: Good Appetite Past Medical History: parkinson, BPH, depression, a-fib Nutritional Acuity: 4-Low Energy Requirement: 2120 (M- StJ) Protein Requirement: 87 (2gm/kg) Fluid Requirement: 2600 (39ml/kg) Diet Type: Diet as Tolerated [place]/REG Nutrition Intervention: Cont diet as ordered, Encourage intake, HS snack Nutrition Monitoring & Eval Nutrition Goals: Eat 75-100% Meal Nutrition Follow-Up: Good Intake RD Patient Assessment Time: [address] Assessment Type: RD Re-Assessment Patient Nutrition Acuity: 4-Low Follow Up Date: May 26, 2017 Nutritional Comment: 05/15 pt admitted post knee surgery. Pt eating 100% of regular diet. Alb 4.4. BMI is in overwt range. Will cont to monitor and encourage intake. 4/3 Pt cont eating 100% of reg diet. No new wt. Will cont to monitor and encourage intake. LEONID JAIMES May 19, 2017 08:30
[2017-05-19] MEDS: oxyCODONE HCL 5 MG CAP PO PRN ×2 (09:08→21:07)
[2017-05-19] MEDS: SOLIFENACIN SUCCINATE 5 MG TAB PO SCH (09:49)
[2017-05-19] MEDS: ASPIRIN 325 MG TAB PO SCH (09:49)
[2017-05-19] MEDS: TAMSULOSIN HCL 0.4 MG CAP PO SCH (09:49)
[2017-05-19] MEDS: DOCUSATE SODIUM 100 MG CAP PO SCH ×2 (09:49→20:37)
[2017-05-19] MEDS: FAMOTIDINE 20 MG TAB PO SCH ×2 (09:50→20:37)
[2017-05-19] MEDS: AMANTADINE HCL 100 MG CAP PO SCH ×3 (09:50→20:38)
[2017-05-19] MEDS: CARBIDOPA/LEVODOPA 25/100 TAB PO SCH ×3 (09:50→20:38)
[2017-05-19] MEDS: FINASTERIDE 5 MG TAB PO SCH (09:50)
[2017-05-19] MEDS: CITALOPRAM HYDROBROM 20 MG TAB PO SCH (09:50)
[2017-05-19] MEDS: POLYETHYLENE GLYCOL 17 GM PKT PO PRN (10:35)
[2017-05-19] MEDS: MAGNESIUM HYDROXIDE* 30ML UDCP PO PRN (10:35)
[2017-05-19 16:15] VITALS: BP 128/83
[2017-05-20] MEDS: ACETAMINOPHEN 325 MG TAB PO SCH ×5 (00:13→23:42)
[2017-05-20] MEDS: oxyCODONE HCL 5 MG CAP PO PRN ×4 (05:19→21:25)
[2017-05-20 07:30] VITALS: BP 134/87
[2017-05-20] MEDS: TAMSULOSIN HCL 0.4 MG CAP PO SCH (08:57)
[2017-05-20] MEDS: FINASTERIDE 5 MG TAB PO SCH (08:57)
[2017-05-20] MEDS: SOLIFENACIN SUCCINATE 5 MG TAB PO SCH (08:58)
[2017-05-20] MEDS: CITALOPRAM HYDROBROM 20 MG TAB PO SCH (08:58)
[2017-05-20] MEDS: CARBIDOPA/LEVODOPA 25/100 TAB PO SCH ×3 (08:58→20:56)
[2017-05-20] MEDS: FAMOTIDINE 20 MG TAB PO SCH (08:58)
[2017-05-20] MEDS: ASPIRIN 325 MG TAB PO SCH (08:58)
[2017-05-20] MEDS: DOCUSATE SODIUM 100 MG CAP PO SCH ×2 (08:58→20:56)
[2017-05-20] MEDS: AMANTADINE HCL 100 MG CAP PO SCH ×3 (08:59→20:56)
[2017-05-20] MEDS: POLYETHYLENE GLYCOL 17 GM PKT PO PRN (09:01)
[2017-05-20] MEDS ORDERED: MAGNESIUM CITRATE 300 ML BTL PO ONE (15:40)
--- NOTE | 2017-05-20 15:58 | Hospitalist Progress Note ---
Subjective Progress Notes Subjective The patient would like to try some guaifenesin. He feels like he needs to cough up some phlegm. He had this sensation prior to coming in to the hospital. PT would like a muscle relaxant to help him straighten his leg. He is having spasm. His neurologist has prescribed tizanidine 3-4mg tid prn but he has not yet picked this up from the pharmacy. He would be agreeable to starting it here. Physical Exam Vital Signs Date Time Temp Pulse Resp B/P (MAP) Pulse Ox O2 Delivery O2 Flow Rate FiO2 05/20/17 10:00 92 Room Air 05/20/17 07:30 97.7 71 14 134/87 (103) Intake and Output 05/21/17 07:00 Intake Total 480 ml Balance 480 ml Intake Oral 480 ml # Voids 1 General Appearance: Alert, Awake, No Acute Distress, Afebrile Cardiovascular: Regular Rate and Rhythm (with STEVE.) Respiratory: Clear to Auscultation GI: Soft and Non-Tender Extremities: Warm, Perfused, Other (No edema.) Integumentary: Other (R knee with bandaged surgical wound.) Assessment and Plan Problems: (1) Status post right knee replacement Status: Acute Assessment & Plan: Patient will be started on Aspirin 325 mg for 30 days for DVT prophylaxis. He has no history of DVT or PE. Will add tizanidine 4mg tid prn for spasm. Will stop famotidine as there is an interaction with tizanidine. (2) Parkinson disease Status: Chronic Assessment & Plan: He is on chronic treatment with Ropinirole, Amantadine, and Carbidopa/ Levodopa. (3) Depression Status: Chronic Assessment & Plan: He is on chronic treatment with citalopram. (4) BPH (benign prostatic hyperplasia) Status: Chronic Assessment & Plan: He is on chronic treatment with Vesicare and Tamsulosin. (5) S/P ablation of atrial fibrillation Status: Chronic Assessment & Plan: Patient reports his cardiac rhythm has been well controlled since the ablation in 2016. He denies CP or SOB. (6) Elevated serum creatinine Status: Acute Assessment & Plan: Creatinine prior to surgery was 1.2. Creatinine was 0.80 . (7) Constipation Status: Acute Assessment & Plan: Will add magnesium citrate. (8) Phlegm in throat Status: Acute Assessment & Plan: Will add guaifenesin. Time Spent on Plan of Care: < 30 min KINA LOPES MD May 20, 2017 15:58
[2017-05-20] MEDS ORDERED: ESCI20TA8 PO (15:59)
[2017-05-20] MEDS ORDERED: RASA1TAB3 PO (16:02)
[2017-05-20 19:16] VITALS: BP 140/88
[2017-05-20] MEDS: guaiFENesin 600 MG TABCR PO SCH (20:56)
[2017-05-21] MEDS: oxyCODONE HCL 5 MG CAP PO PRN ×3 (04:31→21:01)
[2017-05-21] MEDS: ACETAMINOPHEN 325 MG TAB PO SCH ×4 (05:18→23:52)
[2017-05-21 08:00] VITALS: BP 119/59
[2017-05-21] MEDS: guaiFENesin 600 MG TABCR PO SCH ×2 (08:50→21:01)
[2017-05-21] MEDS: FINASTERIDE 5 MG TAB PO SCH (08:50)
[2017-05-21] MEDS: SOLIFENACIN SUCCINATE 5 MG TAB PO SCH (08:50)
[2017-05-21] MEDS: DOCUSATE SODIUM 100 MG CAP PO SCH ×2 (08:50→21:01)
[2017-05-21] MEDS: CARBIDOPA/LEVODOPA 25/100 TAB PO SCH ×3 (08:50→21:01)
[2017-05-21] MEDS: TAMSULOSIN HCL 0.4 MG CAP PO SCH (08:50)
[2017-05-21] MEDS: ASPIRIN 325 MG TAB PO SCH (08:50)
[2017-05-21] MEDS: AMANTADINE HCL 100 MG CAP PO SCH ×3 (08:50→21:01)
[2017-05-21] MEDS: CITALOPRAM HYDROBROM 20 MG TAB PO SCH (08:50)
[2017-05-21] MEDS ORDERED: ASPI-757 PO (13:53)
[2017-05-21] MEDS ORDERED: POLY17PO21 PO (13:53)
[2017-05-21] MEDS ORDERED: DOCU-202 PO (13:53)
[2017-05-21] MEDS ORDERED: TIZA-128 PO (13:53)
[2017-05-21] MEDS ORDERED: GUAI600T57 PO (13:53)
[2017-05-21 17:56] VITALS: BP 122/63
[2017-05-22] MEDS: oxyCODONE HCL 5 MG CAP PO PRN ×2 (03:20→08:52)
[2017-05-22] MEDS: ACETAMINOPHEN 325 MG TAB PO SCH ×2 (06:00→12:27)
[2017-05-22 08:00] VITALS: BP 100/54
[2017-05-22] MEDS: TAMSULOSIN HCL 0.4 MG CAP PO SCH (08:51)
[2017-05-22] MEDS: ASPIRIN 325 MG TAB PO SCH (08:51)
[2017-05-22] MEDS: AMANTADINE HCL 100 MG CAP PO SCH (08:51)
[2017-05-22] MEDS: DOCUSATE SODIUM 100 MG CAP PO SCH (08:51)
[2017-05-22] MEDS: CARBIDOPA/LEVODOPA 25/100 TAB PO SCH (08:51)
[2017-05-22] MEDS: FINASTERIDE 5 MG TAB PO SCH (08:51)
[2017-05-22] MEDS: guaiFENesin 600 MG TABCR PO SCH (08:51)
[2017-05-22] MEDS: SOLIFENACIN SUCCINATE 5 MG TAB PO SCH (08:52)
[2017-05-22] MEDS: CITALOPRAM HYDROBROM 20 MG TAB PO SCH (08:52)
--- NOTE | 2017-05-22 09:24 | OT ECF NOTE ---
Type of Note: Discharge Note Primary Medical Diagnosis: Generalized Weakness s/p R TKA Occupational Therapy Evaluation Date: 05/14/17 SUBJECTIVE: Prior Hospitalization: [facility] 05/11/17 thru 05/14/17. DOS: 05/11/[address] Mercedes Prior Level of Function: (I) with all ADLs/IADLs Prior Living Status: Spouse Living with family Assist by family Community Services: Independent Support adequate No known needs Home Accessibility: Stairs with rails Tub/shower combination with no chair Equipment Owned: Medical Complications/Past Medical History: Parkinson's, Depression, BPH, s/ p ablation of AFib Psychosocial Support: Supportive family Pain Scale (0-10): 03/28 upon discharge date in R knee with ambulation. Pt reporting much improved pain from admission to [facility]. OBJECTIVE: Strength: MMT: Right Left Shoulder Flexion WFL WFL Elbow Flexion WFL WFL Wrist Extension WFL WFL Mining Consultant WFL WFL (5= normal, 4= good, 3= fair, 2= poor, 1= trace) ROM: Both upper extremities, WFL Functional Transfer: Assistive Device: Front wheeled walker Transfer Ability: SBA/CGA. Pt able to frequently correct loss of balance ( I)ly. Pt recognizes he is a high fall risk and verbalizes understanding of safety and need for increased caution with activity s/p R TKA. ADL: Upper body dressing: Assistive device: None Upper body dressing ability: Independent Lower body dressing: Assistive device: Foot stool Lower body dressing ability: Mod (I) Toileting: Assistive device: None Toileting ability: CGA in standing. Discussed alternative methods such as leaning agnist a wall in standing or self-cathing seated. Pt agreeable to consider recommendations. Grooming/hygiene: Assistive device: Seated Grooming ability: Independent Bathing: Assistive device: Recommend extended tub transfer bench for home use. Information for where to obtain provided. Pt verbalized understanding. Bathing ability: Extended tub transfer bench Standardized Assessment: Lore Index of Activities of Daily Livin/20 at initial evaluation (). upon discharge (05/22/17). ASSESSMENT: Paulo presented to [facility] requiring increased assist for mobility and self-cares s/p R TKA with Parkinson's disease. Prior to admission, pt was (I) with ADLs/IADLs. He desires to return home at current level of function and recognizes that he is a high fall risk and must demonstrate increased caution at home s/p R TKA. Paulo presents with no further questions/concerns in regards to discharge home this afternoon. He is agreeable to HH services and considering obtaining an extended tub transfer bench. Problem List/Current Limitations: Pain Decreased activity tolerance Decreased strength Decreased ROM Poor safety awareness Short Term Goals: 1) Pt will be Mod (I) UB/LB dressing. Goal Met. 2) Pt will be Mod (I) toileting. Goal demonstrated with nursing. 3) Pt will be (I) grooming/hygiene. Goal Met. 4) Pt will be Mod (I) shower task. Set-up for shower task. Goal not met. 5) Pt Lore Index of ADLs score will increase by 2 points. Goal met. Psychiatric Technician Goals: Return home with assist from family and services Patient Goals: Return home with family without RW Rehabilitation Prognosis: Good Barriers to Discharge: Pain, Parkinson's PLAN: The patient will discharge home with services and asst from family. Thank you for this referral. If you have any questions, concerns, or comments about this report or plan, please contact me at . Franchesca Aragon MS, OTR/L Occupational Therapist BETTY
[2017-05-22] MEDS ORDERED: PNEUMOC 13-VAL CONJ-DIP CRM/PF 0.5 ML SYR IM ONLY ONE (11:00)
--- NOTE | 2017-05-22 13:29 | PT ECF NOTE ---
Type of Note: Discharge Summary Primary Medical Diagnosis: S/P R TKA; Parkinson's Disease Physical Therapy Evaluation Date: 05/14/2017 Physical Therapy Discharge Date: 05/22/2017 SUBJECTIVE: Prior Hospitalization: [facility] acute for R TKA Prior Level of Function: Pt reports independence with functional mobility including ambulation without an assistive device and ascending/descending a flight of stairs to his basement office. Prior Living Status: Spouse, Living with family, Assist by family Community Services: Independent, Support adequate, No known needs Home Accessibility: Stairs with rails, Tub/shower combination Equipment Owned: Front wheeled walker Medical Complications/Past Medical History: Parkinson's Disease Psychosocial Support: Supportive Pain: 10 OBJECTIVE: Strength: Right Lower Extremity: Hip Flexion: 3+/5 Knee Extension: <3/5 Knee Flexion: <3/5 DF: 5/5 Left Lower Extremity: Hip Flexion:4/5 Knee Extension:4/5 Knee Flexion: 4/5 DF: 5/5 ROM: R) knee PROM: 5-98 degrees Other Neuro findings: Movement patterns consistent with Parkinson's Disease Bed Mobility: Rene with HOB flat and no bed rail Transfers: Rene Gait: SBA x180' with use of RW Timed Up and Go (>12 seconds indicated increased risk for falls): 05/20/17: 1 minute 28 seconds 05/22/17: 58 seconds ASSESSMENT: Pt has made good progress towards PT goals and is safe to d/c home from a mobility standpoint when medically appropriate. He demonstrates good safety and sequencing with transfers and stair negotiation, with minor LOB noted with ambulation, but pt is able to self correct. The pt feels confident with discharge home and will have [facility] services in place upon d/c Problem List/Current Limitations: Pain, Decreased activity tolerance, Decreased strength, Decreased ROM, Decreased coordination, Decreased balance Short Term Goals: 1. Mod I bed mobility from flat bed. -met 2. Mod I transfers from a variety of surfaces.-met 3. Mod I gait with least restrictive device.- partially met 4. Ascend/descend flight of stairs to access basement office.- not met, pt agreeable to not access basement until railing installed 5. Mod I use of CPM (with assistance of ).- met 6. Improve TUG by 2 seconds. -met Usp Goals: Return home at prior level of function - partially met Patient Goals: Return home safely - met PLAN: The patient will discharge home with home health care services and use of RW. Thank you for this referral. If you have any questions, concerns, or comments about this report or plan, please contact me at . Rosetta Perez, PT, DPT [facility]
--- NOTE | 2017-05-26 14:44 | DISCHARGE SUMMARY ---
HISTORY Patient was status post right total knee arthroplasty and was admitted to care home facility for weakness. He has a history of multiple sclerosis which complicated his rehabilitation ability be semi-independent at home. He progressed in a satisfactory fashion. The hospitalist team had been consulted for medical management, PT and OT for rehab. On the day of discharge the wounds were clean, dry and intact. The right lower extremity was neurovascularly intact. He was to have home health for physical therapy, aid in nursing. We are going to see him on May 25, 2017 in followup. PRINCIPAL DIAGNOSIS Status post right total knee arthroplasty. PRINCIPAL PROCEDURE Rehabilitation. BETTY
== END 2017-05-22 12:45 | disposition home health service (06) | DRG 556 ==
LOC: SWB 10:15
PROVIDERS: ADMIT Orthopaedic Surgery; ATTEND Orthopaedic Surgery
DX: M62.81 Muscle weakness (generalized) (principal); M17.0 Bilateral primary osteoarthritis of knee; G20 Parkinson's disease; I51.9 Heart disease, unspecified; I49.9 Cardiac arrhythmia, unspecified; F32.9 Major depressive disorder, single episode, unspecified; N40.0 Benign prostatic hyperplasia without lower urinary tract symptoms; M62.838 Other muscle spasm; K59.00 Constipation, unspecified; R79.89 Other specified abnormal findings of blood chemistry; R09.3 Abnormal sputum; Z96.651 Presence of right artificial knee joint; Z79.01 Long term (current) use of anticoagulants; Z23 Encounter for immunization; Z79.82 Long term (current) use of aspirin; Z86.79 Personal history of other diseases of the circulatory system; Z86.718 Personal history of other venous thrombosis and embolism; Z86.711 Personal history of pulmonary embolism
CPT/HCPCS: 90670; 97162; 97165; G9017

== ENCOUNTER → 2017-06-04 | Outpatient (CLI) | payer BC ==
[2017-05-12 13:52] VITALS: BMI 27.3
[~2017-06-04] MED LIST changes: +ASPI-757 PO; +DOCU-202 PO; +ESCI20TA8 PO; +GUAI600T57 PO; +POLY17PO21 PO; +RASA1TAB3 PO; +TIZA-128 PO
== END ==
LOC: LAB 18:05
PROVIDERS: ATTEND Urology
DX: Z12.5 Encounter for screening for malignant neoplasm of prostate (principal); N40.1 Benign prostatic hyperplasia with lower urinary tract symptoms
CPT/HCPCS: 36415; 84153

== ENCOUNTER → 2017-06-05 | Outpatient (REF) | payer BC ==
[2017-05-12 13:52] VITALS: BMI 27.3
== END ==
LOC: ZZSENDIN 13:46
PROVIDERS: ATTEND Urology
DX: N31.2 Flaccid neuropathic bladder, not elsewhere classified (principal); R33.8 Other retention of urine; B95.7 Other staphylococcus as the cause of diseases classified elsewhere
CPT/HCPCS: 87077; 87088; 87186

== ENCOUNTER 2017-06-15 16:05 | Emergency (ER) | payer BC ==
[2017-05-12 13:52] VITALS: Wt 83.9 kg
--- NOTE | 2017-06-15 16:47 | ER Report ---
History and Physical Time Seen By MD: 16:46 Hx. of Stated Complaint: REPORTS PERIOD OF DIZZINESS TODAY AND WEAKNESS IN HIS LEGS. DIAGNOSED WITH HYPOTENSION LAST WEEK. HPI/ROS CHIEF COMPLAINT: weakness, hypotension, falls HISTORY OF PRESENT ILLNESS: This is a 61 year old male. He has been having episodes of hypotension recently. Had an episode of hypotension at his doctor's office recently, they felt he needed to drink more. He has been trying, but still does not drink much. He has Parkinson's disease as well and has significant postural problems. He has had knee problems as well with knee replacement. He has poor appetite and is not eating well. No fevers or chills. No shortness of breath or cough. No chest pain. He has trouble with urination because of his prostate and see's Dr. Flores for this. Allergies: Uncoded Allergies: HAYFEVER (Allergy, Intermediate, UNKNOWN, 07/29/11) Home Meds Active Scripts Guaifenesin (MUCINEX) 600 Mg Tablet.er, 600 MG PO BID, #60 TAB Prov:KINA LOPES MD 05/21/17 Polyethylene Glycol 3350 (POLYETHYLENE GLYCOL 3350) 17 Gm Powd.pack, 17 GM PO QDAY Y for CONSTIPATION, #1 BOTTLE Prov:KINA LOPES MD 05/21/17 Docusate Sodium (DOCUSATE SODIUM) 100 Mg Capsule, 100 MG PO BID, #60 CAPSULE Prov:KINA LOPES MD 05/21/17 Tizanidine Hcl (TIZANIDINE HCL) 4 Mg Tablet, 4 MG PO TID Y for SPASMS, #90 TAB Prov:KINA LOPES MD 05/21/17 Aspirin (ASPIRIN) 325 Mg Tablet, 325 MG PO QDAY, #30 TAB Take aspirin 325mg daily for 30 days then decrease back to aspirin 81mg daily. Prov:KINA LOPES MD 05/21/17 Reported Medications Rasagiline Mesylate (AZILECT) 1 Mg Tablet, 1 MG PO DAILY 05/20/17 Escitalopram Oxalate (ESCITALOPRAM OXALATE) 20 Mg Tablet, 1 TAB PO DAILY, #90 TAB 05/20/17 Amantadine Hcl (AMANTADINE) 100 Mg Capsule, 100 MG PO TID, CAPSULE 05/06/17 Solifenacin Succinate (VESICARE) 10 Mg Tablet, 10 MG PO DAILY 05/06/17 Carbidopa/Levodopa (CARBIDOPA-LEVODOPA 25-100 TAB) 1 Each Tablet, 1 EACH PO TID 05/06/17 Ropinirole Hcl (ROPINIROLE HCL) 3 Mg Tablet, 3 MG PO TID 05/06/17 Finasteride (FINASTERIDE) 5 Mg Tablet, 5 MG PO QDAY 05/02/15 Tamsulosin Hcl (TAMSULOSIN HCL) 0.4 Mg Cap.er.24h, 0.4 MG PO BID, CAP 05/02/15 Reviewed Nurses Notes: Yes Hx Smoking: Yes Smoking Status: Former Smoker Exposure to Second Hand Smoke?: Yes Hx Substance Use Disorder: No Hx Alcohol Use: Yes Constitutional Vital Sign - Last 24 Hours 06/15/17 06/15/17 06/15/17 06/15/17 16:35 17:00 17:25 17:45 Temp 98.7 Pulse 86 86 80 82 Resp 18 19 18 28 B/P (MAP) 96/65 118/85 (96) 138/71 (93) 127/98 (108) 131/82 (98) 110/68 (82) Pulse Ox 97 96 94 99 O2 Delivery Room Air Room Air Room Air 06/15/17 18:00 Pulse 86 Resp 18 B/P (MAP) Pulse Ox 98 O2 Delivery Room Air Physical Exam General Appearance: The patient is alert. No acute distress. Eyes: Pupils are equal, round. No pallor, injection or icterus. ENT: Mucous membranes are moist. Normal oral mucosa. Posterior oropharynx is normal. Neck: Supple and non tender. Respiratory: Lungs are clear to auscultation. Cardiovascular: Regular rate and rhythm. No murmurs, gallops or rubs. Normal capillary refill. Gastrointestinal: Abdomen is soft and non tender. Nondistended. Normal active bowel sounds. Neurological: Alert and oriented x3. Instability and weakness from Parkinson's. General weakness, but non-focal. Skin: Warm and dry. Musculoskeletal: Extremities are nontender. DIFFERENTIAL DIAGNOSIS: After history and physical exam, differential diagnosis was considered for weakness and dizziness, likely associated with dehydration and orthostatic hypotension, possibly due to medicines or his parkinson's. Medical Decision Making Data Points Result Diagram: 06/15/17 1720 06/15/17 1720 Laboratory Hematology Test 06/15/17 17:20 Red Blood Count 4.11 M/uL (4.00-5.60) Mean Corpuscular Volume 79.8 fL (80.0-96.0) Mean Corpuscular Hemoglobin 27.5 pg (26.0-33.0) Mean Corpuscular Hemoglobin Concent 34.5 g/dL (32.0-36.0) Red Cell Distribution Width 15.1 % (11.5-14.5) Mean Platelet Volume 7.9 fL (7.2-11.1) Neutrophils (%) (Auto) 72.2 % (39.4-72.5) Lymphocytes (%) (Auto) 17.6 % (17.6-49.6) Monocytes (%) (Auto) 6.3 % (4.1-12.4) Eosinophils (%) (Auto) 2.8 % (0.4-6.7) Basophils (%) (Auto) 1.1 % (0.3-1.4) Nucleated RBC Relative Count (auto) 0.0 /100WBC Neutrophils # (Auto) 5.1 K/uL (2.0-7.4) Lymphocytes # (Auto) 1.2 K/uL (1.3-3.6) Monocytes # (Auto) 0.4 K/uL (0.3-1.0) Eosinophils # (Auto) 0.2 K/uL (0.0-0.5) Basophils # (Auto) 0.1 K/uL (0.0-0.1) Nucleated RBC Absolute Count (auto) 0.00 K/uL Sodium Level 141 mmol/L (137-145) Potassium Level 4.3 mmol/L (3.5-5.0) Chloride Level 105 mmol/L (98-107) Carbon Dioxide Level 23 mmol/L (22-30) Blood Urea Nitrogen 34 mg/dl (9-21) Creatinine 1.20 mg/dl (0.66-1.25) Glomerular Filtration Rate Calc > 60.0 Random Glucose 115 mg/dl (75-110) Calcium Level 9.1 mg/dl (8.4-10.2) Magnesium Level 2.1 mg/dl (1.7-2.2) Total Bilirubin 0.6 mg/dl (0.2-1.3) Aspartate Amino Transf (AST/SGOT) 20 U/L (0-35) Alanine Aminotransferase (ALT/SGPT) 22 U/L (0-56) Alkaline Phosphatase 89 U/L (0-126) Total Protein 6.1 gm/dl (6.3-8.2) Albumin 3.4 g/dl (3.5-5.0) Chemistry Test 06/15/17 17:20 White Blood Count 7.0 k/uL (4.5-11.0) Red Blood Count 4.11 M/uL (4.00-5.60) Hemoglobin 11.3 g/dL (14.0-18.0) Hematocrit 32.8 % (42.0-52.0) Mean Corpuscular Volume 79.8 fL (80.0-96.0) Mean Corpuscular Hemoglobin 27.5 pg (26.0-33.0) Mean Corpuscular Hemoglobin Concent 34.5 g/dL (32.0-36.0) Red Cell Distribution Width 15.1 % (11.5-14.5) Platelet Count 207 K/uL (150-450) Mean Platelet Volume 7.9 fL (7.2-11.1) Neutrophils (%) (Auto) 72.2 % (39.4-72.5) Lymphocytes (%) (Auto) 17.6 % (17.6-49.6) Monocytes (%) (Auto) 6.3 % (4.1-12.4) Eosinophils (%) (Auto) 2.8 % (0.4-6.7) Basophils (%) (Auto) 1.1 % (0.3-1.4) Nucleated RBC Relative Count (auto) 0.0 /100WBC Neutrophils # (Auto) 5.1 K/uL (2.0-7.4) Lymphocytes # (Auto) 1.2 K/uL (1.3-3.6) Monocytes # (Auto) 0.4 K/uL (0.3-1.0) Eosinophils # (Auto) 0.2 K/uL (0.0-0.5) Basophils # (Auto) 0.1 K/uL (0.0-0.1) Nucleated RBC Absolute Count (auto) 0.00 K/uL Glomerular Filtration Rate Calc > 60.0 Calcium Level 9.1 mg/dl (8.4-10.2) Magnesium Level 2.1 mg/dl (1.7-2.2) Total Bilirubin 0.6 mg/dl (0.2-1.3) Aspartate Amino Transf (AST/SGOT) 20 U/L (0-35) Alanine Aminotransferase (ALT/SGPT) 22 U/L (0-56) Alkaline Phosphatase 89 U/L (0-126) Total Protein 6.1 gm/dl (6.3-8.2) Albumin 3.4 g/dl (3.5-5.0) ED Course/Re-evaluation Clinical Indication for ER IV: Hydration, IV Access ED Course Orthostatic hypotension with orthostatic vitals. Feels better after a liter of normal saline. Discussed need to increase fluid intake. Also discussed talking to his regular doctor and consider physical therapy for strengthening as well. Decision to Disposition Date: Jun 15, 2017 Decision to Disposition Time: 18:04 Depart Departure Latest Vital Signs Vital Signs Date Time Temp Pulse Resp B/P (MAP) Pulse Ox O2 Delivery O2 Flow Rate FiO2 06/15/17 18:00 86 18 98 Room Air 06/15/17 16:35 98.7 Impression: Primary Impression: Orthostatic hypotension Additional Impression: Dehydration Condition: Improved Disposition: HOME OR SELF-CARE Referrals: TON BARRAGAN MD (PCP) Patient Instructions: Dehydration (ED) Additional Instructions: Increase fluid intake. Start with trying to drink 3 extra glasses of water each day. Follow-up with your regular doctor for further evaluation and consideration for physical therapy. Problem Qualifiers HEIDI ESCOBEDO MD Jun 15, 2017 16:46
[2017-06-15] MEDS ORDERED: NS(*) 0.9% 1000 ML BAG 1,000 ML IV ONE (17:05)
[2017-06-15 17:32] LABS: PLATELET COUNT, AUTOMATED 207 K/uL (150-450)
[2017-06-15 17:45] VITALS: BP 127/98
== END 2017-06-15 18:30 | disposition home or self-care (01) ==
LOC: ER 16:06
DX: I95.1 Orthostatic hypotension (principal); E86.0 Dehydration
CPT/HCPCS: 83735; 85025; 96360; 99284; J7030; 82040; 82247; 82310; 82374; 82435; 82565; 82947; 84075; 84132; 84155; 84295; 84450; 84460; 84520

== ENCOUNTER → 2017-09-01 | Outpatient (CLI) | payer BC ==
[2017-05-12 13:52] VITALS: BMI 27.3
--- NOTE | 2017-09-01 14:42 | RADIOLOGY IMAGING REPORT ---
FACILITY: [facility] PATIENT NAME: Paulo Edwards : 1955 MR: [id number] V: [id number] EXAM DATE: ORDERING PHYSICIAN: TON BARRAGAN TECHNOLOGIST: Location: [facility] Patient: Paulo Edwards : 1955 Visit/Account:[id number] Date of Sevice: 09/01/2017 CHEST PA AND LAT Indication: Abnormal weight loss Comparison: None. Findings: Lungs: Clear. Mediastinum/pulmonary vasculature: Heart size and pulmonary vasculature are normal. Bones/soft tissues: There is moderate thoracic kyphosis. IMPRESSION: Clear lungs. Report Dictated By: Nelson Frazier at 09/01/2017 2:36 PM Report E-Signed By: Nelson Frazier at 09/01/2017 2:37 PM WSN:[id number]
== END ==
LOC: RAD 13:09
PROVIDERS: ATTEND Family Medicine
DX: M40.294 Other kyphosis, thoracic region (principal)
CPT/HCPCS: 71046

== ENCOUNTER → 2017-10-06 | Outpatient (REF) | payer BC ==
[2017-05-12 13:52] VITALS: BMI 27.3
== END ==
LOC: ZZSENDIN 15:40
PROVIDERS: ATTEND Urology
DX: N39.0 Urinary tract infection, site not specified (principal); B96.20 Unspecified Escherichia coli [E. coli] as the cause of diseases classified elsewhere
CPT/HCPCS: 81001; 87077; 87088; 87186

== ENCOUNTER → 2018-01-22 | Outpatient (CLI) | payer BC ==
[2017-05-12 13:52] VITALS: BMI 27.3
[~2018-01-22] MED LIST changes: +AMLO-111 PO; -AMLO-96 PO; +POLY17PO11 PO; -POLY17PO21 PO; -ROPI3TAB16 PO; +ROPI3TAB18 PO
== END ==
LOC: LAB 14:15
PROVIDERS: ATTEND Urology
DX: G20 Parkinson's disease (principal); N31.2 Flaccid neuropathic bladder, not elsewhere classified; N39.41 Urge incontinence; R33.8 Other retention of urine
CPT/HCPCS: 87077; 87088; 87186

== ENCOUNTER 2018-05-03 20:33 | Emergency (ER) | payer BC ==
[2017-05-12 13:52] VITALS: Wt 72.1 kg
[~2018-05-03 20:33] MED LIST changes: -GABA-549 PO; -SULF1TAB24 PO
[2018-05-03] MEDS ORDERED: GABA-549 PO (20:55)
[2018-05-03 22:07] LABS: PLATELET COUNT, AUTOMATED 195 K/uL (150-450)
[2018-05-03 23:30] VITALS: BP 126/95
[2018-05-03] MEDS ORDERED: SULF1TAB24 PO (23:30)
--- NOTE | 2018-05-03 23:30 | ER Report ---
History and Physical Time Seen By MD: 21:00 Hx. of Stated Complaint: WANTS BLOOD PRESSURE CHECKED. SHE STATES HE ABNORMALLY WEAK ON THE WEAK SIDE, NODS OFF, LOW BP AT (SAYS LOW ON THE MONITOR), LOOSE STOOL WITH INCONTINANCE HPI/ROS CHIEF COMPLAINT: Low blood pressure, fatigue HISTORY OF PRESENT ILLNESS: 62-year-old male with Parkinson disease was discharged from rehabilitation one month ago. Since he has been home according to patient and he has been gradually increasingly fatigued and generally weak. He has had no sudden changes in this. They have noted that blood pressures have been low including in the 70s frequently at home. At times, blood pressures have been high as well. His home health nurse and recommended that he come to the emergency department for evaluation. Patient was supposed to go to the lab today to get his PSA checked but it took him reportedly one hour to get from the house to the car due to significant fatigue. Patient denies headache, fever, chills, chest pain, difficulty breathing, abdominal pain. He does note urinary frequency and self catheter's. His last urinary infection was approximately 6 months ago. He was recently started on gabapentin 2 weeks ago and takes one pill twice daily but has not noted a significant change since this time. He also complains of ongoing left knee pain since a knee replacement but states that pain is improved today. REVIEW OF SYSTEMS: Constitutional: No fever, no chills. Eyes: no blurred vision ENT: No sore throat. Cardiovascular: No chest pain, no palpitations. Respiratory: No cough, no shortness of breath. Gastrointestinal: No abdominal pain, no vomiting. Genitourinary: No hematuria. Musculoskeletal: No back pain. Skin: No rashes. Neurological: No headache. Remainder of the 14 system rev: Yes Allergies: Uncoded Allergies: HAYFEVER (Allergy, Intermediate, UNKNOWN, 07/29/11) Home Meds Active Scripts Sulfamethoxazole/Trimethoprim (SULFAMETHOXAZOLE-TMP DS TABLET) 1 Each Tablet, 1 TAB PO Q12H for 7 Days, #14 TAB Prov:LA RUST MD 05/03/18 Guaifenesin (MUCINEX) 600 Mg Tablet.er, 600 MG PO BID, #60 TAB Prov:KINA LOPES MD 05/21/17 Polyethylene Glycol 3350 (POLYETHYLENE GLYCOL 3350) 17 Gm Powd.pack, 17 GM PO QDAY PRN for CONSTIPATION, #1 BOTTLE Prov:KINA LOPES MD 05/21/17 Docusate Sodium (DOCUSATE SODIUM) 100 Mg Capsule, 100 MG PO BID, #60 CAPSULE Prov:KINA LOPES MD 05/21/17 Tizanidine Hcl (TIZANIDINE HCL) 4 Mg Tablet, 4 MG PO TID PRN for SPASMS, #90 TAB Prov:KINA LOPES MD 05/21/17 Aspirin (ASPIRIN) 325 Mg Tablet, 325 MG PO QDAY, #30 TAB Take aspirin 325mg daily for 30 days then decrease back to aspirin 81mg daily. Prov:KINA LOPES MD 05/21/17 Reported Medications Gabapentin (GABAPENTIN) 300 Mg Capsule, 300 MG PO TID, CAPSULE 05/03/18 Rasagiline Mesylate (AZILECT) 1 Mg Tablet, 1 MG PO DAILY 05/20/17 Escitalopram Oxalate (ESCITALOPRAM OXALATE) 20 Mg Tablet, 1 TAB PO DAILY, #90 TAB 05/20/17 Amantadine Hcl (AMANTADINE) 100 Mg Capsule, 100 MG PO TID, CAPSULE 05/06/17 Solifenacin Succinate (VESICARE) 10 Mg Tablet, 10 MG PO DAILY 05/06/17 Carbidopa/Levodopa (CARBIDOPA-LEVODOPA 25-100 TAB) 1 Each Tablet, 1 EACH PO TID 05/06/17 Ropinirole Hcl (ROPINIROLE HCL) 3 Mg Tablet, 3 MG PO TID 05/06/17 Finasteride (FINASTERIDE) 5 Mg Tablet, 5 MG PO QDAY 05/02/15 Tamsulosin Hcl (TAMSULOSIN HCL) 0.4 Mg Cap.er.24h, 0.4 MG PO BID, CAP 05/02/15 Reviewed Nurses Notes: Yes Old Medical Records Reviewed: Yes Hx Smoking: Yes Smoking Status: Former Smoker Exposure to Second Hand Smoke?: Yes Hx Substance Use Disorder: No Hx Alcohol Use: Yes Constitutional Vital Sign - Last 24 Hours 05/03/18 05/03/18 05/03/18 05/03/18 20:48 20:58 21:03 21:18 Temp 98.4 Pulse 87 86 82 Resp 16 B/P (MAP) 115/71 115/71 (86) Pulse Ox 94 94 91 O2 Delivery Room Air 3/1805/03/18 05/03/18 05/03/18 21:33 21:48 22:03 22:29 Pulse 92 86 87 B/P (MAP) 133/89 (104) Pulse Ox 95 93 92 05/03/18 05/03/18 05/03/18 05/03/18 22:34 22:49 23:00 23:04 Pulse 80 86 80 B/P (MAP) 158/87 (110) Pulse Ox 93 90 92 05/03/18 05/03/18 05/03/18 23:19 23:24 23:30 Pulse 79 81 B/P (MAP) 126/95 (105) Pulse Ox 91 92 Intake and Output 05/03/18 05/03/18 05/04/18 15:00 23:00 07:00 Output Total 100 ml Balance -100 ml Physical Exam General Appearance: The patient is alert, has no immediate need for airway protection and no signs of toxicity. Eyes: Pupils equal and round no pallor or injection. ENT, Mouth: Mucous membranes are moist. Respiratory: There are no retractions, lungs are clear to auscultation. Cardiovascular: irregular rhythm; frequent additional beats Gastrointestinal: abdomen is soft, ntn, nd Neurological: alert, oriented x 3 Skin: Warm and dry, no rashes. Musculoskeletal: extremities are nontender and nonswollen. Left knee midline incision intact, no pain with axial loading, no erythema, flucuance. Mild ttp throughout DIFFERENTIAL DIAGNOSIS: After history and physical exam differential diagnosis was considered for medication reaction, infection including pneumonia, uti, septic arthritis, or other etiology of symptoms. Medical Decision Making Data Points Result Diagram: 05/03/18214605/03/182146 Laboratory Hematology Test 05/03/18 21:47 05/03/18 22:30 Red Blood Count 4.16 M/uL (4.00-5.60) Mean Corpuscular Volume 83.1 fL (80.0-96.0) Mean Corpuscular Hemoglobin 27.8 pg (26.0-33.0) Mean Corpuscular Hemoglobin Concent 33.5 g/dL (32.0-36.0) Red Cell Distribution Width 15.3 % (11.5-14.5) Mean Platelet Volume 7.9 fL (7.2-11.1) Neutrophils (%) (Auto) 61.7 % (39.4-72.5) Lymphocytes (%) (Auto) 27.4 % (17.6-49.6) Monocytes (%) (Auto) 7.5 % (4.1-12.4) Eosinophils (%) (Auto) 2.6 % (0.4-6.7) Basophils (%) (Auto) 0.8 % (0.3-1.4) Nucleated RBC Relative Count (auto) 0.0 /100WBC Neutrophils # (Auto) 4.4 K/uL (2.0-7.4) Lymphocytes # (Auto) 1.9 K/uL (1.3-3.6) Monocytes # (Auto) 0.5 K/uL (0.3-1.0) Eosinophils # (Auto) 0.2 K/uL (0.0-0.5) Basophils # (Auto) 0.1 K/uL (0.0-0.1) Nucleated RBC Absolute Count (auto) 0.00 K/uL Sodium Level 138 mmol/L (137-145) Potassium Level 4.0 mmol/L (3.5-5.0) Chloride Level 108 mmol/L (98-107) Carbon Dioxide Level 25 mmol/L (22-30) Blood Urea Nitrogen 30 mg/dl (9-21) Creatinine 0.70 mg/dl (0.66-1.25) Glomerular Filtration Rate Calc > 60.0 Random Glucose 99 mg/dl (75-110) Calcium Level 8.8 mg/dl (8.4-10.2) Magnesium Level 2.0 mg/dl (1.7-2.2) Total Bilirubin 0.3 mg/dl (0.2-1.3) Aspartate Amino Transf (AST/SGOT) 15 U/L (0-35) Alanine Aminotransferase (ALT/SGPT) 13 U/L (0-56) Alkaline Phosphatase 91 U/L (0-126) Total Protein 6.1 g/dl (6.3-8.2) Albumin 3.6 g/dl (3.5-5.0) Urine Color Yellow Urine Clarity Slightly-cloudy Urine pH 5.0 pH (4.8-9.5) Urine Specific Foster 1.017 Urine Protein Negative mg/dL (NEGATIVE) Urine Glucose (UA) Negative mg/dL (NEGATIVE) Urine Ketones Trace mg/dL (NEGATIVE) Urine Blood Negative (NEGATIVE) Urine Nitrite Positive (NEGATIVE) Urine Bilirubin Negative (NEGATIVE) Urine Urobilinogen Negative mg/dL (0.2-1.9) Urine Leukocyte Esterase Large (NEGATIVE) Urine RBC 2 /HPF (0-2/HPF) Urine WBC 31 /HPF (0-5/HPF) Urine Squamous Epithelial Cells None /LPF (NONE-FEW) Urine Amorphous Crystals Few /HPF Urine Bacteria Few /HPF (NONE-FEW) Urine Mucus Few /HPF (NONE-FEW) Chemistry Test 05/03/18 21:47 05/03/18 22:30 White Blood Count 7.1 k/uL (4.5-11.0) Red Blood Count 4.16 M/uL (4.00-5.60) Hemoglobin 11.6 g/dL (14.0-18.0) Hematocrit 34.5 % (42.0-52.0) Mean Corpuscular Volume 83.1 fL (80.0-96.0) Mean Corpuscular Hemoglobin 27.8 pg (26.0-33.0) Mean Corpuscular Hemoglobin Concent 33.5 g/dL (32.0-36.0) Red Cell Distribution Width 15.3 % (11.5-14.5) Platelet Count 195 K/uL (150-450) Mean Platelet Volume 7.9 fL (7.2-11.1) Neutrophils (%) (Auto) 61.7 % (39.4-72.5) Lymphocytes (%) (Auto) 27.4 % (17.6-49.6) Monocytes (%) (Auto) 7.5 % (4.1-12.4) Eosinophils (%) (Auto) 2.6 % (0.4-6.7) Basophils (%) (Auto) 0.8 % (0.3-1.4) Nucleated RBC Relative Count (auto) 0.0 /100WBC Neutrophils # (Auto) 4.4 K/uL (2.0-7.4) Lymphocytes # (Auto) 1.9 K/uL (1.3-3.6) Monocytes # (Auto) 0.5 K/uL (0.3-1.0) Eosinophils # (Auto) 0.2 K/uL (0.0-0.5) Basophils # (Auto) 0.1 K/uL (0.0-0.1) Nucleated RBC Absolute Count (auto) 0.00 K/uL Glomerular Filtration Rate Calc > 60.0 Calcium Level 8.8 mg/dl (8.4-10.2) Magnesium Level 2.0 mg/dl (1.7-2.2) Total Bilirubin 0.3 mg/dl (0.2-1.3) Aspartate Amino Transf (AST/SGOT) 15 U/L (0-35) Alanine Aminotransferase (ALT/SGPT) 13 U/L (0-56) Alkaline Phosphatase 91 U/L (0-126) Total Protein 6.1 g/dl (6.3-8.2) Albumin 3.6 g/dl (3.5-5.0) Urine Color Yellow Urine Clarity Slightly-cloudy Urine pH 5.0 pH (4.8-9.5) Urine Specific Foster 1.017 Urine Protein Negative mg/dL (NEGATIVE) Urine Glucose (UA) Negative mg/dL (NEGATIVE) Urine Ketones Trace mg/dL (NEGATIVE) Urine Blood Negative (NEGATIVE) Urine Nitrite Positive (NEGATIVE) Urine Bilirubin Negative (NEGATIVE) Urine Urobilinogen Negative mg/dL (0.2-1.9) Urine Leukocyte Esterase Large (NEGATIVE) Urine RBC 2 /HPF (0-2/HPF) Urine WBC 31 /HPF (0-5/HPF) Urine Squamous Epithelial Cells None /LPF (NONE-FEW) Urine Amorphous Crystals Few /HPF Urine Bacteria Few /HPF (NONE-FEW) Urine Mucus Few /HPF (NONE-FEW) Urinalysis Test 05/03/18 22:30 Urine Color Yellow Urine Clarity Slightly-cloudy Urine pH 5.0 pH (4.8-9.5) Urine Specific Foster 1.017 Urine Protein Negative mg/dL (NEGATIVE) Urine Glucose (UA) Negative mg/dL (NEGATIVE) Urine Ketones Trace mg/dL (NEGATIVE) Urine Blood Negative (NEGATIVE) Urine Nitrite Positive (NEGATIVE) Urine Bilirubin Negative (NEGATIVE) Urine Urobilinogen Negative mg/dL (0.2-1.9) Urine Leukocyte Esterase Large (NEGATIVE) Urine RBC 2 /HPF (0-2/HPF) Urine WBC 31 /HPF (0-5/HPF) Urine Squamous Epithelial Cells None /LPF (NONE-FEW) Urine Amorphous Crystals Few /HPF Urine Bacteria Few /HPF (NONE-FEW) Urine Mucus Few /HPF (NONE-FEW) EKG/Imaging EKG Interpretation 12 lead EKG: Rhythm: normal sinus rhythm [place]: normal QRS: normal ST segments: normal PVC's. Borderline QT Monitor Interpretation: Normal Sinus Rhythm ED Course/Re-evaluation ED Course 62-year-old male presents complaining of fatigue and no blood pressure. Of note, all blood pressures in emergency department are within normal limits. Patient notes that he has PVCs. His EKG is otherwise unremarkable. His urine does show signs of UTI which may well account for his symptoms. Upon review of prior urine cultures they have been pansensitive. I we'll initiate Bactrim for antibiotic is this does not interact with other medications that he is on and he has been sensitive to this previously. Patient is comfortable discharge at this time but understands return immediately if he is feeling worse at any point. Decision to Disposition Date: May 03, 2018 Decision to Disposition Time: 23:25 Depart Departure Latest Vital Signs Vital Signs Date Time Temp Pulse Resp B/P (MAP) Pulse Ox O2 Delivery O2 Flow Rate FiO2 05/03/18 23:30 126/95 (105) 05/03/18 23:24 81 92 05/03/18 20:48 98.4 16 Room Air Impression: Primary Impression: UTI (urinary tract infection) Condition: Improved Disposition: HOME OR SELF-CARE Referrals: TON BARRAGAN MD (PCP) 2 Days New Scripts Sulfamethoxazole/Trimethoprim (SULFAMETHOXAZOLE-TMP DS TABLET) 1 Each Tablet 1 TAB PO Q12H for 7 Days, #14 TAB Prov: LA RUST MD 05/03/18 Patient Instructions: Urinary Tract Infection in Men (DC) Additional Instructions: Please return for nausea, vomiting, increased weakness, fever, worsening symptoms or any concerns. Problem Qualifiers Primary Impression: UTI (urinary tract infection) Urinary tract infection type: acute cystitis Hematuria presence: without hematuria Qualified Codes: N30.00 - Acute cystitis without hematuria LA RUST MD May 03, 2018 23:30
--- NOTE | 2018-05-04 02:08 | EKG ---
FACILITY: [facility] PATIENT NAME: NISHANT ZALDIVAR : [id number] MR: [id number] V: [id number] EXAM DATE: ORDERING PHYSICIAN: LA RUST TECHNOLOGIST: FABIO Medina Reason : CP Blood Pressure : / mmHG Vent. Rate : 083 BPM Atrial Rate : 083 BPM P-R Int : 136 ms QRS Dur : 096 ms QT Int : 392 ms P-R-T Axes : 062 046 077 degrees QTc Int : 460 ms Sinus rhythm with occasional premature ventricular complexes Nonspecific interventricular conduction delay Prolonged QT Abnormal ECG Confirmed by ANURADHA LOPES ([id number] on 05/04/2018 3:26:39 AM Referred By: Confirmed By:ANURADHA LOPES
== END 2018-05-03 23:41 | disposition home or self-care (01) ==
LOC: ER 21:12
DX: N30.00 Acute cystitis without hematuria (principal)
CPT/HCPCS: 36415; 81001; 82040; 82247; 82310; 82374; 82435; 82565; 82947; 83735; 84075; 84132; 84155; 84295; 84450; 84460; 84520; 85025; 93005; 99283

== ENCOUNTER → 2018-05-03 | Outpatient (CLI) | payer BC ==
[2017-05-12 13:52] VITALS: BMI 27.3
[~2018-05-03] MED LIST changes: -AMLO-111 PO; +AMLO-125 PO; +GABA-549 PO; +SULF1TAB24 PO
== END ==
LOC: LAB 20:19
PROVIDERS: ATTEND Urology
DX: N40.1 Benign prostatic hyperplasia with lower urinary tract symptoms (principal)
CPT/HCPCS: 84153

== ENCOUNTER → 2018-07-08 | Outpatient (CLI) | payer BC ==
[2017-05-12 13:52] VITALS: BMI 27.3
[~2018-07-08] MED LIST changes: +GABA-549 PO; +SULF1TAB24 PO
== END ==
LOC: LAB 14:28
PROVIDERS: ATTEND Urology
DX: N39.0 Urinary tract infection, site not specified (principal)
CPT/HCPCS: 81001; 87077; 87088; 87186

== ENCOUNTER → 2018-09-03 | Outpatient (CLI) | payer BC ==
[2017-05-12 13:52] VITALS: BMI 27.3
== END ==
LOC: LAB 15:26
PROVIDERS: ATTEND Urology
DX: N39.0 Urinary tract infection, site not specified (principal); B96.20 Unspecified Escherichia coli [E. coli] as the cause of diseases classified elsewhere
CPT/HCPCS: 81001; 87077; 87088; 87186